=== PATIENT | male | born 1940 | race Caucasian/White ===

== ENCOUNTER 2019-08-01 07:29 | Emergency (ER) | payer MEDICARE, BC ==
[~2019-08-01] VITALS: Ht 182.9 cm; Wt 104.3 kg
[~2019-08-01 07:29] MED LIST: CLONIDINE HCL0.1 MG PO; HYDROCODONE-IB1 EACH PO; NASONEX17 GM NAS; QUINAPRIL HCL40 MG PO; ZOLPIDEM TARTRA10 MG PO
--- OUTSIDE RECORDS SUMMARY | 2019-08-01 07:32 | XMS ---
PreManage Notification: SURI DIALLO [employer] Events No recent Security Events currently on file CRITERIA MET - [facility] CARE PROVIDERS There are no care providers on record at this time. Saundra has no Care Guidelines for this patient. [place] VISIT COUNT (12 MO.) 1 PARVEZ Bhat TOTAL 1 NOTE: Visits indicate total known visits. ED/C VISIT TRACKING (12 MO.) 08/01/2019 07:29 [facility] TYPE: Emergency COMPLAINT: - FALL INPATIENT VISIT TRACKING (12 MO.) No inpatient visits to display in this time frame [email or web address]
== END 2019-08-01 09:53 | disposition home or self-care (01) ==
LOC: ED 07:29
DX: Z04.3 Encounter for examination and observation following other accident (principal); I10 Essential (primary) hypertension; Z87.891 Personal history of nicotine dependence; Z88.2 Allergy status to sulfonamides; Z88.5 Allergy status to narcotic agent; Z88.1 Allergy status to other antibiotic agents; Z79.899 Other long term (current) drug therapy; W19.XXXA Unspecified fall, initial encounter
CPT/HCPCS: 80053; 82550; 85025; 99283

== ENCOUNTER 2022-01-18 09:18 | Inpatient (IN) | payer MEDICARE, BC ==
[~2022-01-18] VITALS: Ht 182.9 cm; Wt 114.1 kg
--- OUTSIDE RECORDS SUMMARY | 2022-01-18 09:21 | XMS ---
PreManage Notification: SURI DIALLO Security Copy Ch[employer] Events No recent Security Events currently on file CRITERIA MET - [facility]GE[facility] CARE PROVIDERS TRA [facility] Family Medicine 08/01/2019-Current PHONE: Unknown Rema Breen Nurse Practitioner: Family Current PHONE: [phone] Saundra has no Care Guidelines for this patient. [place] VISIT COUNT (12 MO.) 1 PARVEZ Bhat TOTAL 1 NOTE: Visits indicate total known visits. ED/UCC VISIT TRACKING (12 MO.) 01/18/2022 09:18 [facility] TYPE: Emergency COMPLAINT: - HAVING ISSUE POST STROKE INPATIENT VISIT TRACKING (12 MO.) No inpatient visits to display in this time frame [email or web address]
--- NOTE | 2022-01-18 13:43 | EKG ---
[facility] [address] [place] [address] Signed Sinus rhythm with 1st degree AV block Otherwise normal ECG No previous ECGs available Confirmed by Ector Chamorro MD () on 01/18/2022 1:43:32 PM Electronically Signed By: ECTOR CHAMORRO MD 01/18/22 1343 PATIENT NAME: SURI DIALLO Electrocardiogram DATE OF : 44 PHYSICIAN: ECTOR CHAMORRO MD REPORT #: [id number] REPORT IS CONFIDENTIAL AND NOT TO BE RELEASED WITHOUT AUTHORIZATION
[2022-01-19] MEDS ORDERED: HYDROCODON-ACE1 EA11 PO (08:14)
[2022-01-19] MEDS ORDERED: AMLODIPINE BES2.5 MG PO (08:15)
[2022-01-19] MEDS ORDERED: GABAPENTIN100 MG PO (08:16)
[2022-01-19] MEDS ORDERED: FLUTICASONE PRO16 GM NAS (08:17)
[2022-01-27] MEDS ORDERED: LIPITOR40 MG PO (16:18)
[2022-01-27] MEDS ORDERED: ARTHRICREAM85 GM TOP (16:20)
[2022-01-27] MEDS ORDERED: LOW DOSE ASPIRI81 MG PO (16:20)
[2022-01-27] MEDS ORDERED: STIMULANT LAXA1 EACH PO (16:21)
[2022-01-27] MEDS ORDERED: ZOLPIDEM TARTRA10 MG PO (16:21)
[2022-01-27] MEDS ORDERED: DEEP SEA44 ML NAS (16:22)
== END 2022-01-28 13:00 | disposition home or self-care (01) | DRG 66 ==
LOC: ED 09:18 → MS 09:19
PROVIDERS: ADMIT Family Medicine; ATTEND Internal Medicine
DX: I63.89 Other cerebral infarction (principal); I10 Essential (primary) hypertension; F03.90 Unspecified dementia, unspecified severity, without behavioral disturbance, psychotic disturbance, mood disturbance, and anxiety; F51.04 Psychophysiologic insomnia; G89.4 Chronic pain syndrome; R01.1 Cardiac murmur, unspecified; R73.9 Hyperglycemia, unspecified; Z20.822 Contact with and (suspected) exposure to COVID-19; I35.0 Nonrheumatic aortic (valve) stenosis; R29.702 NIHSS score 2; L89.91 Pressure ulcer of unspecified site, stage 1; Z87.891 Personal history of nicotine dependence; Z98.890 Other specified postprocedural states; Z88.2 Allergy status to sulfonamides; Z88.5 Allergy status to narcotic agent; Z88.1 Allergy status to other antibiotic agents; Z79.891 Long term (current) use of opiate analgesic; Z79.899 Other long term (current) drug therapy
CPT/HCPCS: 36415; 51701; 51798; 70450; 70496; 70498; 70551; 71045; 80053; 80061; 81001; 83735; 85025; 85610; 85730; 92610; 93005; 93010; 93306; 97110; 97116; 97162; 97166; 97530; 97535; 99285-25; A9270; C9803; J1815; Q9967; U0003